=== PATIENT | male | born 1970 | race Two or more races ===

== ENCOUNTER 2018-01-16 17:06 | Emergency (ER) | payer SELFPAY ==
[~2018-01-16] VITALS: Ht 177.8 cm; Wt 86.0 kg
[2018-01-16] MEDS ORDERED: HYDROCODONE/ACETAMINOPHEN 5/325MG TABLET PO PRN (18:45)
[2018-01-16 19:23] VITALS: BP 134/76
== END 2018-01-16 19:25 | disposition home or self-care (01) ==
LOC: ER 17:06
DX: S16.1XXA Strain of muscle, fascia and tendon at neck level, initial encounter (principal); S80.01XA Contusion of right knee, initial encounter; V49.40XA Driver injured in collision with unspecified motor vehicles in traffic accident, initial encounter; Y93.89 Activity, other specified; Y92.410 Unspecified street and highway as the place of occurrence of the external cause
CPT/HCPCS: 73560; 99284

== ENCOUNTER 2021-08-21 20:51 | Emergency (ER) | payer MEDICAID ==
[~2021-08-21] VITALS: Ht 175.3 cm; Wt 100.0 kg
[2021-08-21 22:00] VITALS: BP 144/92
[2021-08-22] MEDS ORDERED: IBUP-2029 MT (00:33)
[2021-08-22] MEDS ORDERED: METH-653 MT (00:33)
== END 2021-08-22 03:08 | disposition home or self-care (01) ==
LOC: ER 20:51
DX: R07.89 Other chest pain (principal); M25.512 Pain in left shoulder
CPT/HCPCS: 71120; 73030; 99284